=== PATIENT | male | born 1980 | race Caucasian/White ===

== ENCOUNTER 2023-05-19 18:37 | Observation (INO) ==
[2023-05-19] MEDS ORDERED: ONDANSETRON INJ 2 MG/ML 2 ML VIAL IV STA (19:15)
[2023-05-19] MEDS ORDERED: ACETAMINOPHEN 1,000 MG/100 ML VIAL IV STA (19:15)
[2023-05-19] MEDS ORDERED: CEFEPIME 2,000 MG/20 ML VIAL IV STA (19:15)
[2023-05-19] MEDS ORDERED: SODIUM CHLORIDE 0.9% 1000ML 1,000 ML IV SCH (19:15)
[2023-05-19] MEDS ORDERED: KETOROLAC TROMETHAMINE 15 MG/ML VIAL IV ONE (19:15)
--- NOTE | 2023-05-19 19:26 | Emergency Department Note ---
Impression & Plan Acute orchitis, Epididymitis, Quadriplegia, History of urinary self- catheterization ED Provider Note NAME: JORGE CAM AGE: 43 SEX: M : 1980 ARRIVES VIA: Walk-In INFORMANT: [Patient] ED PROVIDER(S): [Germán France MD] CHIEF COMPLAINT: Illness HISTORY OF PRESENT ILLNESS: The patient is a 43-year-old quadriplegic. He has to self catheterize. The patient just moved here from [place]. He has been in the area for about a week and a half. Patient states that he has had a week of cloudy looking urine but no other symptoms. Today, about an hour ago, he suddenly developed chills, rigors, body aches and flulike symptoms. His blood pressure was high, he feels like his muscles are spasming and this is oftentimes a sign with his quadriplegia that he has an infection. Patient also noticed some right testicle pain and swelling today. He has not had any issues with his testicles before. There has been no cough or congestion, no respiratory complaints. He has not had a rash. PMHx/PSHx: See Below SOCIAL HISTORY: See Below. PHYSICAL EXAM: GENERAL: Patient is in no acute distress. HEENT: No acute trauma, normocephalic atraumatic, mucous membranes moist, no nasal congestion. NECK: No stridor, no adenopathy, no meningismus, trachea is midline. LUNGS: Clear to auscultation bilaterally, no wheeze, no rhonchi, breath sounds equal. HEART: Mildly tachycardic, regular rhythm, no murmurs. ABDOMEN: Soft, nontender, bowel sounds positive, no peritonitis. There is a baclofen pump under the skin on the left. EXTREMITIES: No cyanosis or edema, full range of motion of all the joints wi thout pain or difficulty, no signs for acute trauma. NEUROLOGIC: Awake and alert. Does move his upper extremities, no lower extremity movement. SKIN: No rash, no jaundice, no diaphoresis. Groin: Circumcised, the right testicle and epididymis are swollen and painful to touch. The right hemiscrotum is slightly erythematous. DIFFERENTIAL DIAGNOSIS: Bacteremia or sepsis, UTI pyelonephritis, orchitis, viral illness, renal or liver failure, electrolyte imbalance, among others. EMERGENCY DEPARTMENT COURSE/PROCEDURES: Prior/Outside records reviewed: None. ECG per my interpretation: Indication was possible sepsis. The ECG shows a normal sinus rhythm with a rate of 73. There is no ST elevation, no PVCs. There is incomplete right bundle branch block. The QTc is 427. Continuous Cardiac Monitoring per my interpretation: An order was placed for continuous cardiac monitoring. The monitor shows a rate of 84 with normal sinus rhythm. MEDICAL DECISION MAKING: There is no leukocytosis or concerning anemia. There is a normal platelet count. No renal failure or significant electrolyte abnormality. Lactic acid level is not elevated making severe sepsis less likely. Bilirubin is mildly elevated, the remaining liver enzymes were unremarkable. ECG showed a sinus rhythm, no ischemia or dysrhythmia. Cardiac enzyme testing x1 is not consistent with acute cardiac injury. Procalcitonin level was not elevated making severe bacterial infection less likely. Urinalysis showed possible infection versus some contamination. Respiratory bio fire was completely negative. Chest film per my review did not show mediastinal widening, pneumonia or pneumothorax. Testicular ultrasound shows an epididymitis orchitis on the right. On exam, the patient's right testicle was tender and appeared swollen. Patient did present febrile. The patient received IV cefepime and IV saline. He received IV Zofran for nausea. He was given IV Toradol to help with fever, he received IV Tylenol for his fever. I did speak with urology, Dr. Vickers. He recommended IV antibiotic therapy and a hospital stay. He did asked that I add vancomycin to the antibiotic regimen. I spoke with the patient, I spoke with his family. I did speak with the on-call hospitalist. The bottle caser has been involved. DISPOSITION: Patient's presentation and findings warrant a hospital stay. Past Med/Surg History Medical History History of quadriplegia Social History Smoking Status: Never smoker Feels Safe at Home: Yes Allergies Allergies Allergy/AdvReac Type Severity Reaction Status Date / Time [id number] Allergy Unknown Uncoded 05/09/03 00:42 Home Meds Home Medications Medication Instructions Recorded Confirmed ascorbic acid (vitamin C) 500 mg 500 mg PO DAILY 05/19/23 05/19/23 tablet (Vitamin C) gabapentin 600 mg tablet 600 mg PO DAILY 05/19/23 05/19/23 Results & Data (ED) Vital Signs Vital Signs - 24 hr 05/19/23 18:39 05/19/23 20:00 05/19/23 19:16 Temperature 38.4 C H Temperature Source Temporal Artery Scan Pulse Rate 92 H 84 77 Pulse Rate [Right Finger] Pulse Rhythm Regular Pulse Strength Normal Respiratory Rate 20 22 Respiratory Effort / Characteristics Respiratory Depth Respiratory Pattern Blood Pressure 118/76 106/70 Blood Pressure [Right Arm] Blood Pressure Mean 90 82 Blood Pressure Mean [Right Arm] Blood Pressure Position Sitting Pulse Oximetry 98 92 Oxygen Delivery Method Room Air Sepsis Recent Fever Within 48 Hours No Sepsis New/Unexplained Change in Mental Status No Sepsis Action Taken by Nursing No Action Required 05/19/23 22:01 Temperature Temperature Source Pulse Rate Pulse Rate [Right Finger] 73 Pulse Rhythm Pulse Strength Respiratory Rate 16 Respiratory Effort / Characteristics Non-Labored Spontaneous Respiratory Depth Normal Respiratory Pattern Regular Blood Pressure Blood Pressure [Right Arm] 83/50 L Blood Pressure Mean Blood Pressure Mean [Right Arm] 61 Blood Pressure Position Pulse Oximetry 97 Oxygen Delivery Method Room Air Sepsis Recent Fever Within 48 Hours Sepsis New/Unexplained Change in Mental Status Sepsis Action Taken by Shelter Medications Current Medication List: was personally reviewed by me Laboratory Data Attestation: I reviewed the patient's lab results. 05/19/23 19:28 05/19/23 19:28 Lab Results 05/19/23 05/19/23 05/19/23 Range/Units 19:28 19:28 19:28 WBC 10.37 (4.8-10.8) K/ul RBC 4.67 L (4.70-6.10) M/uL Hgb 14.7 (14.0-18.0) g/dl Hct 42.8 (42.0-52.0) % MCV 91.6 (80.0-100.0) fL MCH 31.5 (25.0-34.0) pg MCHC 34.3 (32.0-36.0) g/dL RDW Std Deviation 40.8 (36.4-46.3) fL RDW Coeff of Yana 12.2 (11.5-14.5) % Plt Count 137 (130-400) K/uL MPV 10.1 (9.4-12.4) fL Immature Gran % (Auto) 0.3 % Neut % (Auto) 85.3 % Lymph % (Auto) 5.9 % Schuyler % (Auto) 7.8 % Eos % (Auto) 0.4 % Baso % (Auto) 0.3 % Neut # (Auto) 8.85 H (1.40-6.50) K/uL Lymph # (Auto) 0.61 L (1.2-3.4) K/uL Schuyler # (Auto) 0.81 H (0.11-0.59) K/uL Eos # (Auto) 0.04 (0-0.50) K/uL Baso # (Auto) 0.03 (0-0.2) K/uL Immature Gran # (Auto) 0.03 (0.01-0.20) K/uL Sodium 138 (136-145) mmol/L Potassium 4.2 (3.5-5.1) mmol/L Chloride 100 (98-107) mmol/L Carbon Dioxide 30 (21-32) mmol/L Anion Gap 8 (3-11) BUN 13 (6-23) mg/dl Creatinine 0.53 L (0.6-1.4) mg/dl Est Cr Clr Drug Dosing 191.2 ml/min Est GFR ( Amer) 149.1 ml/min Est GFR (Non-Af Amer) 128.7 ml/min BUN/Creatinine Ratio 24.5 H (10-20) Glucose 79 (70-99(Fasting)) mg/dl Lactate (0.4-2.0) mmol/L Calcium 8.9 (8.6-10.3) mg/dl Magnesium 1.9 (1.7-2.4) mg/dl Total Bilirubin 1.5 H (0.2-1.0) mg/dl Direct Bilirubin 0.2 (0-0.2) mg/dl AST 17 (13-39) U/L ALT 14 (7-52) U/L Alkaline Phosphatase 80 (34-104) U/L Troponin I High Sens 2.4 (0-20) pg/ml Total Protein 7.0 (6.0-8.3) gm/dl Albumin 4.4 (3.4-5.0) gm/dl Procalcitonin < 0.05 (0-0.5) ng/ml Urine Color Urine Appearance (Clear) Urine pH (4.5-7.5) Ur Specific Brod[place] (1.000-1.030) Urine Protein (Negative) Urine Glucose (UA) (Negative) Urine Ketones (Negative) Urine Blood (Negative) Urine Nitrite (Negative) Urine Bilirubin (Negative) Urine Urobilinogen (Negative) Ur Leukocyte Esterase (Negative) Urine WBC (Auto) (0-5) /hpf Urine RBC (Auto) (0-4) /hpf U Hyaline Cast (Auto) (0-5) /lpf U Epithel Cells (Auto) (0-5) /lpf Urine Bacteria (Auto) (Negative) Adenovirus (PCR) (NotDetected) B. pertussis DNA (PCR) (NotDetected) B.parapertussis DNA PCR (NotDetected) C. pneumoniae DNA (PCR) (NotDetected) Coronavirus OC43 (PCR) (NotDetected) Coronavirus HKU1 (PCR) (NotDetected) Coronavirus 229E (PCR) (NotDetected) SARS-CoV-2 (PCR) (NotDetected) Coronavirus NL63 (PCR) (NotDetected) Human Metapneumovir PCR (NotDetected) Influenza Type A (PCR) (NotDetected) Influenza Type B (PCR) (NotDetected) M. pneumoniae (PCR) (NotDetected) Parainfluenza 1 (PCR) (NotDetected) Parainfluenza 2 (PCR) (NotDetected) Parainfluenza 3 (PCR) (NotDetected) Parainfluenza 4 (PCR) (NotDetected) RSV (PCR) (NotDetected) Entero/Rhino (PCR) (NotDetected) 05/19/23 05/19/23 05/19/23 Range/Units 19:28 19:34 19:53 WBC (4.8-10.8) K/ul RBC (4.70-6.10) M/uL Hgb (14.0-18.0) g/dl Hct (42.0-52.0) % MCV (80.0-100.0) fL MCH (25.0-34.0) pg MCHC (32.0-36.0) g/dL RDW Std Deviation (36.4-46.3) fL RDW Coeff of Yana (11.5-14.5) % Plt Count (130-400) K/uL MPV (9.4-12.4) fL Immature Gran % (Auto) % Neut % (Auto) % Lymph % (Auto) % Schuyler % (Auto) % Eos % (Auto) % Baso % (Auto) % Neut # (Auto) (1.40-6.50) K/uL Lymph # (Auto) (1.2-3.4) K/uL Schuyler # (Auto) (0.11-0.59) K/uL Eos # (Auto) (0-0.50) K/uL Baso # (Auto) (0-0.2) K/uL Immature Gran # (Auto) (0.01-0.20) K/uL Sodium (136-145) mmol/L Potassium (3.5-5.1) mmol/L Chloride (98-107) mmol/L Carbon Dioxide (21-32) mmol/L Anion Gap (3-11) BUN (6-23) mg/dl Creatinine (0.6-1.4) mg/dl Est Cr Clr Drug Dosing ml/min Est GFR ( Amer) ml/min Est GFR (Non-Af Amer) ml/min BUN/Creatinine Ratio (10-20) Glucose (70-99(Fasting)) mg/dl Lactate 1.9 (0.4-2.0) mmol/L Calcium (8.6-10.3) mg/dl Magnesium (1.7-2.4) mg/dl Total Bilirubin (0.2-1.0) mg/dl Direct Bilirubin (0-0.2) mg/dl AST (13-39) U/L ALT (7-52) U/L Alkaline Phosphatase (34-104) U/L Troponin I High Sens (0-20) pg/ml Total Protein (6.0-8.3) gm/dl Albumin (3.4-5.0) gm/dl Procalcitonin (0-0.5) ng/ml Urine Color Yellow Urine Appearance Clear (Clear) Urine pH 6.0 (4.5-7.5) Ur Specific Brod[place] 1.013 (1.000-1.030) Urine Protein Negative (Negative) Urine Glucose (UA) Negative (Negative) Urine Ketones Trace H (Negative) Urine Blood Negative (Negative) Urine Nitrite Negative (Negative) Urine Bilirubin Negative (Negative) Urine Urobilinogen Negative (Negative) Ur Leukocyte Esterase 1+ H (Negative) Urine WBC (Auto) 5-10 H (0-5) /hpf Urine RBC (Auto) 0-4 (0-4) /hpf U Hyaline Cast (Auto) 0 (0-5) /lpf U Epithel Cells (Auto) >30 H (0-5) /lpf Urine Bacteria (Auto) Negative (Negative) Adenovirus (PCR) Not Detected (NotDetected) B. pertussis DNA (PCR) Not Detected (NotDetected) B.parapertussis DNA PCR Not Detected (NotDetected) C. pneumoniae DNA (PCR) Not Detected (NotDetected) Coronavirus OC43 (PCR) Not Detected (NotDetected) Coronavirus HKU1 (PCR) Not Detected (NotDetected) Coronavirus 229E (PCR) Not Detected (NotDetected) SARS-CoV-2 (PCR) Not Detected (NotDetected) Coronavirus NL63 (PCR) Not Detected (NotDetected) Human Metapneumovir PCR Not Detected (NotDetected) Influenza Type A (PCR) Not Detected (NotDetected) Influenza Type B (PCR) Not Detected (NotDetected) M. pneumoniae (PCR) Not Detected (NotDetected) Parainfluenza 1 (PCR) Not Detected (NotDetected) Parainfluenza 2 (PCR) Not Detected (NotDetected) Parainfluenza 3 (PCR) Not Detected (NotDetected) Parainfluenza 4 (PCR) Not Detected (NotDetected) RSV (PCR) Not Detected (NotDetected) Entero/Rhino (PCR) Not Detected (NotDetected) Administered Medications Discontinued Medications Sodium Chloride (Nss 1000ml) 1,000 mls @ 999 mls/hr IV .[id number] MELBA Stop: 05/19/23 20:15 Last Infusion: 05/19/23 22:13 Dose: 0 mls/hr Documented By: Admin: 05/19/23 19:40 Dose: 999 mls/hr Documented By: MALIK Cefepime HCl (Maxipime) 2,000 mg in 20 mls @ 5 mls/min IV NOW STA; Protocol Stop: 05/19/23 19:18 Last Admin: 05/19/23 19:43 Dose: 5 mls/min Documented By: MALIK Acetaminophen (Ofirmev) 1,000 mg in 100 mls @ 400 mls/hr IV NOW STA Stop: 05/19/23 19:29 Last Infusion: 05/19/23 22:13 Dose: 0 mls/hr Documented By: Admin: 05/19/23 19:40 Dose: 400 mls/hr Documented By: MALIK Ketorolac Tromethamine (Ketorolac Tromethamine 15 Mg/Ml Vial) 10 mg IV NOW ONE Stop: 05/19/23 19:16 Last Admin: 05/19/23 19:43 Dose: 10 mg Documented By: MALIK Ondansetron HCl (Ondansetron Inj 2 Mg/Ml 2 Ml Vial) 4 mg IV NOW STA Stop: 05/19/23 19:16 Last Admin: 05/19/23 19:43 Dose: 4 mg Documented By: MALIK Imaging Data Radiologist's Impression: Scrotum Ultrasound 05/19/23 19:15 Exam(s): US SCROTAL EXAM: US Scrotum CLINICAL HISTORY: Right test pain, swelling. TECHNIQUE: Real-time ultrasound of the scrotum with color Doppler and image documentation. COMPARISON: No relevant prior studies available. FINDINGS: Right testicle: The right testicle measures 2.7 x 3 x 2.5 cm. No intratesticular mass. No evidence for torsion with hyperdynamic flow within the right testicle. Left testicle: The left testicle measures 3.8 x 2.5 x 2 cm. No intratesticular mass or evidence for torsion. Epididymides: The right epididymis is enlarged with hyperdynamic flow noted. The left epididymis is unremarkable. Scrotum: Moderate right hydrocele with internal septations noted. IMPRESSION: 1. No evidence for testicular torsion bilaterally. 2. Hyperdynamic flow within the right testicle and epididymis, consistent with orchiepididymitis. 3. Moderate presumed reactive right hydrocele. Electronically signed by: Christopher Gandara MD 05/19/23 21:51 PM Discharge Plan Visit Data Chief Complaint: Illness Stated Complaint: FLU SYMPTOMS,HBP,BODY SPASM ED Provider: Germán France Discharge Problem: Acute orchitis, Epididymitis, Quadriplegia, History of urinary self- catheterization Patient Disposition: Admitted As Inpatient Condition: Fair Forms Stand Alone Forms: [facility] Prescriptions Prescriptions: No Action gabapentin 600 mg Tablet 600 mg PO DAILY ascorbic acid (vitamin C) [Vitamin C] 500 mg Tablet 500 mg PO DAILY Referrals Referrals: PCP,NO [Physician] -
[2023-05-19 20:10] LABS: Basophils # (auto) 0.03 K/uL (0-0.2); Basophils % (auto) 0.3 %; Eosinophils # (auto) 0.04 K/uL (0-0.50); Eosinophils % (auto) 0.4 %; Hematocrit (blood only) 42.8 % (42.0-52.0); Hemoglobin 14.7 g/dl (14.0-18.0); Immature Granulocytes # (auto) 0.03 K/uL (0.01-0.20); Immature Granulocytes % (auto) 0.3 %; Lymphocytes # (auto) 0.61 K/uL (1.2-3.4); Lymphocytes % (auto) 5.9 %; Mean Corpuscular Hemoglobin 31.5 pg (25.0-34.0); Mean Corpuscular Hgb Conc 34.3 g/dL (32.0-36.0); Mean Corpuscular Volume 91.6 fL (80.0-100.0); Mean Platelet Volume 10.1 fL (9.4-12.4); Monocytes # (auto) 0.81 K/uL (0.11-0.59); Monocytes % (auto) 7.8 %; Neutrophils # (auto) 8.85 K/uL (1.40-6.50); Neutrophils % (auto) 85.3 %; Platelet Count 137 K/uL (130-400); RDW Coefficient of Variation 12.2 % (11.5-14.5); RDW Standard Deviation 40.8 fL (36.4-46.3); Red Blood Count 4.67 M/uL (4.70-6.10); White Blood Count 10.37 K/ul (4.8-10.8)
[2023-05-19 20:19] LABS: Appearance Urine Clear (Clear); Bacteria Urine Automated Negative (Negative); Bilirubin Urine Negative (Negative); Blood Urine Negative (Negative); Cast Urine Automated 0 /lpf (0-5); Color Urine Yellow; Epithelial Cell Urine Auto >30 /lpf (0-5); Glucose Urine UA Negative (Negative); Ketones Urine Trace (Negative); Leukocyte Esterase Urine 1+ (Negative); Nitrite Urine Negative (Negative); Protein Urine Negative (Negative); RBC Urine Automated 0-4 /hpf (0-4); Specific Gravity Urine 1.013 (1.000-1.030); Urobilinogen Urine Negative (Negative)
[2023-05-19 20:31] LABS: Albumin Level 4.4 gm/dl (3.4-5.0); BUN Creatinine Ratio 24.5 (10-20); Bilirubin Direct 0.2 mg/dl (0-0.2); Bilirubin,Total 1.5 mg/dl (0.2-1.0); Calcium 8.9 mg/dl (8.6-10.3); Creatinine Clr Calc Pharmacy 191.2 ml/min; Est GFR (African American) 149.1 ml/min; Est GFR (Non-African American) 128.7 ml/min; Magnesium 1.9 mg/dl (1.7-2.4); Potassium 4.2 mmol/L (3.5-5.1)
[2023-05-19 20:36] LABS: Troponin I High Sensitivity 2.4 pg/ml (0-20)
[2023-05-19 21:06] LABS: Adenovirus PCR Not Detected (NotDetected); Bordetella parapertussis PCR Not Detected (NotDetected); Bordetella pertussis PCR Not Detected (NotDetected); Chlamydia pneumoniae PCR Not Detected (NotDetected); Coronavirus 229E PCR Not Detected (NotDetected); Coronavirus CoV-2 (COVID19)PCR Not Detected (NotDetected); Coronavirus HKU1 PCR Not Detected (NotDetected); Coronavirus NL63 PCR Not Detected (NotDetected); Coronavirus OC43PCR Not Detected (NotDetected); Human Metapneumovirus PCR Not Detected (NotDetected); Influenza A PCR Not Detected (NotDetected); Influenza B PCR Not Detected (NotDetected); Mycoplasma pneumoniae PCR Not Detected (NotDetected); Parainfluenza Virus 1 PCR Not Detected (NotDetected); Parainfluenza Virus 2 PCR Not Detected (NotDetected); Parainfluenza Virus 3 PCR Not Detected (NotDetected); Parainfluenza Virus 4 PCR Not Detected (NotDetected); Respiratory Syncytial VirusPCR Not Detected (NotDetected); Rhinovirus/Enterovirus PCR Not Detected (NotDetected)
--- NOTE | 2023-05-19 21:51 | Ultrasound Report ---
Exam(s): US SCROTAL EXAM: US Scrotum CLINICAL HISTORY: Right test pain, swelling. TECHNIQUE: Real-time ultrasound of the scrotum with color Doppler and image documentation. COMPARISON: No relevant prior studies available. FINDINGS: Right testicle: The right testicle measures 2.7 x 3 x 2.5 cm. No intratesticular mass. No evidence for torsion with hyperdynamic flow within the right testicle. Left testicle: The left testicle measures 3.8 x 2.5 x 2 cm. No intratesticular mass or evidence for torsion. Epididymides: The right epididymis is enlarged with hyperdynamic flow noted. The left epididymis is unremarkable. Scrotum: Moderate right hydrocele with internal septations noted. IMPRESSION: 1. No evidence for testicular torsion bilaterally. 2. Hyperdynamic flow within the right testicle and epididymis, consistent with orchiepididymitis. 3. Moderate presumed reactive right hydrocele. Electronically signed by: Christopher Gandara MD 05/19/23 21:51 PM
[2023-05-19] MEDS ORDERED: VANCOMYCIN HCL 2,000 MG in SODIUM CHLORIDE 0.9% 500 ML IV ONE (22:10)
[2023-05-19] MEDS ORDERED: VANCOMYCIN CONSULT ACTIVE PRN (22:10)
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
[2023-05-20] MEDS ORDERED: ONDANSETRON INJ 2 MG/ML 2 ML VIAL IV PRN (01:18)
[2023-05-20] MEDS ORDERED: KETOROLAC TROMETHAMINE 15 MG/ML VIAL IV PRN (01:18)
[2023-05-20] MEDS ORDERED: ACETAMINOPHEN 325 MG TAB PO PRN (01:18)
[2023-05-20] MEDS: Patient's ALLERGY Info needs ENTERED SCH ×3 (01:45→07:14)
[2023-05-20] MEDS: ENOXAPARIN INJ 40 MG/0.4 ML SYR SQ SCH (04:42)
--- NOTE | 2023-05-20 06:56 | XRay Report ---
XR chest 1V portable HISTORY: 43 years-old Male Sepsis acute sepsis COMPARISON: None TECHNIQUE: AP view of the chest FINDINGS: Cardiomediastinal and hilar silhouettes are within normal limits. No pneumothorax, pleural effusion, airspace consolidation or pulmonary edema. Midthoracic dextroscoliosis. Cervical spinal fusion hardwa re. Degenerative changes of the AC joints. IMPRESSION: No acute process. ACT 112: Negative or not required by law. The above report was generated using voice recognition software. It may contain grammatical, syntax o r spelling errors. Electronically signed by: Gael Foss M.D. 05/20/2023 6:55 AM
--- NOTE | 2023-05-20 07:35 | Hospitalist Progress Note ---
Date of Service May 20, 2023 Assessment & Plan (1) Epididymitis: (2) Acute orchitis: (3) Quadriplegia: (4) History of urinary self-catheterization: Plan 43 y/o male with history of quadriplegia and self-catheterization that arrived to the hospital due to general malaise and right testicular pain. On arrival, he was feverish with temperatures at 38.4 C and vital signs showed slight hypotension without tachycardia. Scrotal ultrasound revealed no acute torsion and reactive hydrocele. CXR without acute process. Blood cultures were drawn and he was started on Vancomycin and Cefepime antibiotic therapy for suspected epididymal orchitis, likely due to recent history of undiagnosed UTI. Today he was evaluated at bedside and found clinically and hemodynamically stable. His vital signs have been stable. He had a fever of 38 C this morning without chills. Labs showing leukocytosis of 11.92, and thrombocytopenia (100 K). Hemoglobin at 11.9 and Hct at 35.4 with MCV of 93. Chemistry panel showing mild hyponatremia (135) and adequate electrolytes. Renal markers within refe rence range. Hyperglycemia of 173. Hypocalcemia of 7.6. #Orchitis/ Epididymitis - History of self-catheterization 5-7 times a day. - History of recurrent UTIs for which he was on chronic Methenamine, but stopped a while ago. - Noticed symptoms of scrotal pain start to appear 1-2 days ago. - Carrington catheter inserted: draining clear urine, will leave this during his hospital stay. - Blood cultures taken: pending results - Continue IV Cefepime and IV Vancomycin - Following urology recommendations: * Depending on culture results, consider transitioning to PO antibiotic therapy * Outpatient follow-up with them to discuss intermittent catheterization and UTI prevention Admission and Anticipated Discharge Date Admission Date: May 19, 2023 Supervising Physician Co-Signing Physician Notes I personally examined the patient and verified all kate points of history and exam, discussed case, and agree with decision making with Dr Donald feeling better. still had a fever this AM vitals noted, in general he is awake and alert pleasant no distress. HEENT normocephalic atraumatic mucous membranes moist. Breathing unlabored no accessory muscle use good effort. Skin shows no rashes no pallor or icterus. Epididymitis with mild sepsis (first heart rate, and temperature present on admission)improving, continue antibiotics pending cultures, hopefully home tomorrow on p.o. antibiotics. DVT proph - lovenox Bettye Beard is a 43 y/o male with history of quadriplegia and self-catheterization that arrived to the hospital due to general malaise and right testicular pain. On arrival, he was feverish with temperatures at 38.4 C and vital signs showed slight hypotension without tachycardia. Scrotal ultrasound revealed no acute torsion and reactive hydrocele. CXR without acute process. Blood cultures were drawn and he was started on Vancomycin and Cefepime antibiotic therapy for suspected epididymal orchitis, likely due to recent history of undiagnosed UTI. Today patient states he feels scrotal discomfort but has slightly improved when compared with yesterday. He denies chest pain, palpitations, SOB, nausea, vomiting, or any other symptom. Review of Systems Review of Systems: As per HPI. Physical Exam Physical Exam: General: Alert. Oriented to person, time, and place. Afebrile. No acute distress. Eyes: pupils equal and reactive to light bilaterally, extraocular movements intact. Cardiac: Regular rate and rhythm, no murmurs/rubs/gallops. Respiratory: Clear to auscultation bilaterally a/p, no wheezes/rales/rhonchi. No increased work of breathing. Symmetrical chest rise. No respiratory distress. Abdomen: Soft, nontender, nondistended. Bowel sounds present. : testicular tenderness on the right side, slight erythema of right testicle, left testicle normal Psych: Euthymic affect. Mood and affect congruence. Regular speech rate and content. Results & Data Results & Data Vital Signs (Past 12 Hours) Vital Signs Temp Pulse Pulse Resp BP BP Pulse Ox 05/20/23 07:34 38.6 C H 80 17 111/64 94 05/20/23 01:24 37.3 C 74 16 104/61 96 05/20/23 01:18 05/19/23 23:00 70 05/20/23 00:00 83 22 103/58 L 95 05/19/23 23:30 71 22 93/53 L 95 05/19/23 23:00 66 18 97/55 L 94 05/19/23 22:30 72 22 95/53 L 91 05/19/23 22:00 76 20 83/50 L 95 05/19/23 21:48 73 18 102/56 L 05/19/23 22:01 73 16 83/50 L 97 05/19/23 20:00 84 22 106/70 92 Pulse Ox O2 Del Method O2 Del Method 05/20/23 07:34 Room Air 05/20/23 01:24 Room Air 05/20/23 01:18 96 Room Air 05/19/23 23:00 05/20/23 00:00 05/19/23 23:30 05/19/23 23:00 05/19/23 22:30 05/19/23 22:00 05/19/23 21:48 05/19/23 22:01 Room Air 05/19/23 20:00 Resident Activity Tracking Resident Involvement: Resident Care Provided Care Provided: Adult Hospital Medicine
[2023-05-20] MEDS: VANCOMYCIN HCL 1,500 MG in SODIUM CHLORIDE 0.9% 500 ML IV SCH ×2 (07:46→22:14)
[2023-05-20] MEDS: GABAPENTIN 600 MG TAB PO SCH (07:49)
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
[2023-05-20] MEDS: CEFEPIME 2,000 MG in SYRINGE 0 ML IV SCH ×2 (08:13→22:15)
[2023-05-20 10:05] LABS: Hematocrit (blood only) 35.4 % (42.0-52.0); Hemoglobin 11.9 g/dl (14.0-18.0); Mean Corpuscular Hemoglobin 31.6 pg (25.0-34.0); Mean Corpuscular Hgb Conc 33.6 g/dL (32.0-36.0); Mean Corpuscular Volume 93.9 fL (80.0-100.0); Mean Platelet Volume 9.7 fL (9.4-12.4); Platelet Count 100 K/uL (130-400); RDW Coefficient of Variation 12.5 % (11.5-14.5); RDW Standard Deviation 43.1 fL (36.4-46.3); Red Blood Count 3.77 M/uL (4.70-6.10); White Blood Count 11.92 K/ul (4.8-10.8)
[2023-05-20 10:23] LABS: BUN Creatinine Ratio 20.3 (10-20); Calcium 7.9 mg/dl (8.6-10.3); Creatinine Clr Calc Pharmacy 175.4 ml/min; Est GFR (African American) 142.7 ml/min; Est GFR (Non-African American) 123.1 ml/min; Magnesium 1.8 mg/dl (1.7-2.4); Potassium 3.5 mmol/L (3.5-5.1)
--- NOTE | 2023-05-20 12:56 | Pharmacy Report ---
Pharmacy PK ABX Note - Date of Service May 20, 2023 - Assessment and Plan Assessment 43 year old M receiving Vancomycin/Cefepime for treatment of epididymoorchitis. * Day #1 of antimicrobial therapy. * History of quadraplegia with self cath at home. * Febrile at 38.6. Lactate and procal negative. Leukocytosis of 12k. SCr stable. Plan Vancomycin * Loading dose: 2000 mg IV x 1 * Maintenance dose: 1500 mg IV every 12 hours * Regimen is predicted to achieve target AUC/JULIAN of 400-600 mg/L.hr * Random level ordered for: 05/22/23 Cefepime * 2000 mg IV every 12 hours Pharmacy will continue to follow and will adjust dose/frequency as necessary. Thank you. Pharmacy has transitioned to AUC monitoring for vancomycin. AUC/JULIAN is the preferred PK/PD target and is associated with decreased risk of nephrotoxicity compared to traditional trough targets.
--- NOTE | 2023-05-20 19:31 | Billing Data ---
Date of Service May 20, 2023 Coding Level of Care Code 26494 SUB INP/OBS CARE
--- NOTE | 2023-05-21 03:10 | Billing Data ---
Date of Service May 21, 2023 Coding Level of Care Code 43633 INT INP/OBS CARE
[2023-05-21] MEDS: ENOXAPARIN INJ 40 MG/0.4 ML SYR SQ SCH (05:42)
--- NOTE | 2023-05-21 08:11 | Urology Progress Note ---
Date of Service May 21, 2023 Assessment & Plan (1) Epididymitis: (2) Acute orchitis: Plan 43-year-old male with right epididymal orchitis No acute urologic intervention necessary He is subjectively improved and I think he is stable for discharge home from urologic perspective Recommend giving patient 2-week course of ciprofloxacin 500 mg twice daily as this will have the best tissue penetration for his epididymal orchitis Can remove his catheter prior to discharge and he can return to intermittent catheterization at home Urology will send a message to schedule follow-up in clinic in 4 to 6 weeks Admission and Anticipated Discharge Date Admission Date: May 19, 2023 Subjective No acute issues overnight. Afebrile with stable vitals. Subjectively reports feeling much improved. Review of Systems Review of Systems: 14 point review of systems negative outside of what is listed above in HPI Physical Exam Physical Exam: General: Alert and oriented, no acute distress HEENT: Normocephalic, mucous membranes moist Pulmonary: Nonlabored respirations Abdomen: Nondistended : Carrington catheter draining clear urine. Circumcised phallus with orthotopic meatus. Testicles descended bilaterally. Left testicle palpably normal. Right testicle firm and indurated but tenderness improved from yesterday's exam. Extremities: Moves all 4 spontaneously Neuro: No gross deficits Skin: Warm, dry, no rashes noted Results & Data Vital Signs (Past 12 Hours) Vital Signs Temp Pulse Resp BP Pulse Ox O2 Del Method 05/21/23 07:17 37 C 62 16 113/67 93 Room Air 05/20/23 22:25 Room Air 05/20/23 22:12 37.3 C 64 16 126/70 97 Room Air PG Care Time/CCT Total # of Minutes Spent Total Time Spent with Patient: Total time spent is greater than 50% in coordination of care (as documented) at patient's floor/unit and/or counseling patient: Coding Level of Care Code 00202 SUB INP/OBS CARE 2/35MIN Diagnoses Epididymitis N45.1 Acute orchitis N45.2
[2023-05-21] MEDS: GABAPENTIN 600 MG TAB PO SCH (08:22)
[2023-05-21] MEDS: CEFEPIME 2,000 MG in SYRINGE 0 ML IV SCH ×2 (08:22→08:46)
[2023-05-21] MEDS: VANCOMYCIN HCL 1,500 MG in SODIUM CHLORIDE 0.9% 500 ML IV SCH ×2 (08:23→08:46)
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
[2023-05-21 09:42] LABS: Basophils # (auto) 0.02 K/uL (0-0.2); Basophils % (auto) 0.3 %; Eosinophils # (auto) 0.03 K/uL (0-0.50); Eosinophils % (auto) 0.4 %; Hematocrit (blood only) 37.4 % (42.0-52.0); Hemoglobin 12.5 g/dl (14.0-18.0); Immature Granulocytes # (auto) 0.04 K/uL (0.01-0.20); Immature Granulocytes % (auto) 0.5 %; Lymphocytes # (auto) 0.75 K/uL (1.2-3.4); Lymphocytes % (auto) 9.4 %; Mean Corpuscular Hemoglobin 31.6 pg (25.0-34.0); Mean Corpuscular Hgb Conc 33.4 g/dL (32.0-36.0); Mean Corpuscular Volume 94.7 fL (80.0-100.0); Monocytes # (auto) 0.47 K/uL (0.11-0.59); Monocytes % (auto) 5.9 %; Neutrophils # (auto) 6.64 K/uL (1.40-6.50); Neutrophils % (auto) 83.5 %; Platelet Count 115 K/uL (130-400); RDW Coefficient of Variation 12.3 % (11.5-14.5); RDW Standard Deviation 43.2 fL (36.4-46.3); Red Blood Count 3.95 M/uL (4.70-6.10); White Blood Count 7.95 K/ul (4.8-10.8)
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
[2023-05-21 09:56] LABS: Anion Gap 3 (3-11); Blood Urea Nitrogen 8 mg/dl (6-23); Calcium 8.4 mg/dl (8.6-10.3); Carbon Dioxide 30 mmol/L (21-32); Chloride 106 mmol/L (98-107); Creatinine Clr Calc Pharmacy 206.9 ml/min; Est GFR (African American) > 150.0 ml/min; Est GFR (Non-African American) 131.8 ml/min; Glucose Fasting 159 mg/dl (70-99); Potassium 3.8 mmol/L (3.5-5.1); Sodium 139 mmol/L (136-145)
--- NOTE | 2023-05-21 18:42 | Billing Data ---
Date of Service May 21, 2023 Coding Level of Care Code 80300 IN/OBS DISCH 30 MIN/LESS
--- NOTE | 2023-05-22 08:58 | Electrocardiogram Report ---
Test Reason : Blood Pressure : / mmHG Vent. Rate : 073 BPM Atrial Rate : 073 BPM P-R Int : 162 ms QRS Dur : 104 ms QT Int : 388 ms P-R-T Axes : 065 053 067 degrees QTc Int : 427 ms Normal sinus rhythm Incomplete right bundle branch block Nonspecific T wave abnormality Abnormal ECG No previous ECGs available Confirmed by Ray Mata ([id number]) on 05/22/2023 8:58:25 AM Referred By: REFERRED SELF Confirmed By:Ray Mata
== END 2023-05-21 10:50 | disposition home or self-care (01) ==
LOC: 3W 18:37 → ED 18:37 → SUATTDRO 23:13 → 3W 05-20 00:20